=== PATIENT | female | born 1970 | race Caucasian/White ===

== ENCOUNTER 2020-07-28 13:52 | Day surgery (SDC) | payer BC ==
[2020-07-28] MEDS ORDERED: BUPIVACAINE 0.5% VIAL IJ ONE (13:53)
[2020-07-28] MEDS ORDERED: Depo-Medrol 40 MG/ML IM ONE (13:53)
[2020-07-28] MEDS ORDERED: Lactated Ringers 1,000 ML IV ONE (15:32)
[2020-07-28] MEDS ORDERED: Ketamine HCl 50 MG/ML ONE (16:02)
[2020-07-28] MEDS ORDERED: DIPRIVAN 200 MG/20 ML IV ONE (16:02)
[2020-07-28] MEDS ORDERED: SUBLIMAZE 100 MCG/2 ML ONE (16:02)
--- NOTE | 2020-07-28 21:52 | XRAY ---
Indication: Left knee injection. Intraoperative fluoroscopy was provided for 3 seconds. Single digital spot image submitted for interpretation demonstrates needle tip projecting over the left femur intercondylar notch. Small amount of contrast injected for needle tip placement. Correlate with intraoperative findings/report.
--- NOTE | 2020-07-28 21:52 | XRAY ---
Indication: Right knee injection. Intraoperative fluoroscopy was provided for 6 seconds. Single digital spot image submitted for interpretation demonstrates needle tip projecting over the right femur intercondylar notch. Small amount of contrast injected for needle tip placement. Correlate with intraoperative findings/report.
--- NOTE | 2020-07-28 21:56 | XRAY ---
6 seconds fluoroscopy time in surgery for right knee intra-articular injection.
--- NOTE | 2020-07-28 22:06 | XRAY ---
3 seconds fluoroscopy time in surgery for left knee intra-articular injection.
== END 2020-07-28 16:18 | disposition home or self-care (01) ==
LOC: SDC-PAIN 13:52
PROVIDERS: ATTEND Psychiatry & Neurology Pain Medicine
DX: M17.0 Bilateral primary osteoarthritis of knee (principal); E11.9 Type 2 diabetes mellitus without complications; G47.30 Sleep apnea, unspecified; F41.8 Other specified anxiety disorders; Z79.899 Other long term (current) drug therapy
CPT/HCPCS: 20610; 73560; 77002; 82962; J1030; J2704; J3010; Q9966

== ENCOUNTER 2020-12-22 07:48 | Day surgery (SDC) | payer BC ==
[2020-12-22] MEDS ORDERED: LIDOCAINE HCL 2% 100 MG/5 ML IJ ONE (07:49)
[2020-12-22] MEDS ORDERED: DIPRIVAN 200 MG/20 ML IV ONE (09:55)
[2020-12-22] MEDS ORDERED: Ketamine HCl 50 MG/ML ONE (09:55)
--- NOTE | 2020-12-22 11:33 | XRAY ---
15 seconds of fluoroscopy was used in surgery for a bilateral L4-L5 and L5-S1 MBB.
--- NOTE | 2020-12-22 11:34 | XRAY ---
Indication: Bilateral L4-S1 MBB. Intraoperative fluoroscopy was provided for 15 seconds. Single digital spot image submitted for interpretation demonstrates posterior needle tips projecting over the expected left and right L4-S1 nerve roots. Correlate with intraoperative findings/report.
[2020-12-22] MEDS ORDERED: Lactated Ringers 1,000 ML IV ONE (15:53)
== END 2020-12-22 10:20 | disposition home or self-care (01) ==
LOC: SDC-PAIN 07:48
PROVIDERS: ATTEND Psychiatry & Neurology Pain Medicine
DX: M47.816 Spondylosis without myelopathy or radiculopathy, lumbar region (principal); E11.9 Type 2 diabetes mellitus without complications; G47.30 Sleep apnea, unspecified; J45.909 Unspecified asthma, uncomplicated; F41.8 Other specified anxiety disorders; Z79.899 Other long term (current) drug therapy
CPT/HCPCS: 64493; 64494; 72020; 77002; 82947; J2704

== ENCOUNTER 2021-05-11 08:52 | Day surgery (SDC) | payer BC ==
[2021-05-11] MEDS ORDERED: BUPIVACAINE 0.5% VIAL IJ ONE (08:53)
[2021-05-11] MEDS ORDERED: Depo-Medrol 40 MG/ML IM ONE (08:53)
[2021-05-11] MEDS ORDERED: DIPRIVAN 200 MG/20 ML IV ONE (10:32)
--- NOTE | 2021-05-11 14:53 | XRAY ---
Indication: Left SI joint injection. Intraoperative fluoroscopy provided for 18 seconds. 2 digital spot image submitted for interpretation demonstrates posterior needle tip projecting over the inferior left SI joint. Correlate with intraoperative findings/report.
--- NOTE | 2021-05-11 15:06 | XRAY ---
18 seconds of fluoroscopy was used in surgery for a left SI joint injection.
[2021-05-11] MEDS ORDERED: Lactated Ringers 1,000 ML IV ONE (16:01)
== END 2021-05-11 11:00 | disposition home or self-care (01) ==
LOC: SDC-PAIN 08:52
PROVIDERS: ATTEND Psychiatry & Neurology Pain Medicine
DX: M46.1 Sacroiliitis, not elsewhere classified (principal); F41.9 Anxiety disorder, unspecified; F32.9 Major depressive disorder, single episode, unspecified; M19.90 Unspecified osteoarthritis, unspecified site; E11.9 Type 2 diabetes mellitus without complications; G47.30 Sleep apnea, unspecified; J45.909 Unspecified asthma, uncomplicated; Z79.899 Other long term (current) drug therapy
CPT/HCPCS: 27096; 72020; 77002; 82947; J1030; J2704; G0260

== ENCOUNTER 2021-07-20 10:03 | Day surgery (SDC) | payer BC ==
[2021-07-20] MEDS ORDERED: Xylocaine 1% Vial 30 ML PF IJ ONE (10:04)
[2021-07-20] MEDS ORDERED: Depo-Medrol 40 MG/ML IM ONE (10:04)
[2021-07-20] MEDS ORDERED: BUPIVACAINE 0.5% VIAL IJ ONE (10:04)
[2021-07-20] MEDS ORDERED: DIPRIVAN 200 MG/20 ML IV ONE (10:58)
[2021-07-20] MEDS ORDERED: Ketamine HCl 50 MG/ML ONE (10:59)
--- NOTE | 2021-07-20 11:40 | XRAY ---
Indication: Right shoulder injection. Intraoperative fluoroscopy provided for 28 seconds. Single digital spot image submitted for interpretation demonstrates needle tip projecting over left glenohumeral joint superiorly. Small amount of contrast injected for needle tip placement. Correlate with intraoperative findings/report.
--- NOTE | 2021-07-20 11:42 | XRAY ---
30 seconds fluoroscopy time in surgery for intra-articular injection of the left hip.
--- NOTE | 2021-07-20 11:52 | XRAY ---
28 seconds fluoroscopy time in surgery for intra-articular injection of the right shoulder.
[2021-07-20] MEDS ORDERED: Lactated Ringers 1,000 ML IV ONE (14:04)
--- NOTE | 2021-07-21 10:13 | XRAY ---
30 seconds fluoroscopy time in surgery for intra-articular injection of the left hip.
== END 2021-07-20 11:37 | disposition home or self-care (01) ==
LOC: SDC-PAIN 10:03
PROVIDERS: ATTEND Psychiatry & Neurology Pain Medicine
DX: M16.12 Unilateral primary osteoarthritis, left hip (principal); M19.011 Primary osteoarthritis, right shoulder; E11.9 Type 2 diabetes mellitus without complications; Z79.899 Other long term (current) drug therapy
CPT/HCPCS: 20610; 73030; 73501; 77002; 82947; J1030; J2001; J2704; Q9966

== ENCOUNTER 2021-11-10 07:08 | Day surgery (SDC) | payer BC ==
[2021-11-10] MEDS ORDERED: BUPIVACAINE 0.5% VIAL IJ ONE (07:09)
[2021-11-10] MEDS ORDERED: Depo-Medrol 40 MG/ML IM ONE (07:09)
[2021-11-10] MEDS ORDERED: Lactated Ringers 1,000 ML IV ONE (08:26)
--- NOTE | 2021-11-10 09:37 | XRAY ---
Indication: Right shoulder and subacromial injections. Intraoperative fluoroscopy provided for 22 seconds. 2 digital spot image submitted for interpretation demonstrates needle tip projecting over the right glenohumeral joint superiorly. Second needle tip is subacromial. Small amount of contrast injected for both needle tip placement. Correlate with intraoperative findings/report.
--- NOTE | 2021-11-10 10:40 | XRAY ---
22 seconds fluoroscopy time in surgery for intra-articular and subachromial injections of the right shoulder.
== END 2021-11-10 09:16 | disposition home or self-care (01) ==
LOC: SDC-PAIN 07:08
PROVIDERS: ATTEND Psychiatry & Neurology Pain Medicine
DX: M19.011 Primary osteoarthritis, right shoulder (principal); M75.51 Bursitis of right shoulder; E11.9 Type 2 diabetes mellitus without complications; Z79.899 Other long term (current) drug therapy
CPT/HCPCS: 20610; 73030; 77002; 82947; J1030; Q9966

== ENCOUNTER 2022-03-08 07:56 | Day surgery (SDC) | payer BC, MEDICAID ==
[2022-03-08] MEDS ORDERED: Depo-Medrol 40 MG/ML IM ONE (07:57)
[2022-03-08] MEDS ORDERED: BUPIVACAINE 0.5% VIAL IJ ONE (07:57)
[2022-03-08] MEDS ORDERED: DIPRIVAN 200 MG/20 ML IV ONE (10:08)
[2022-03-08] MEDS ORDERED: Lactated Ringers 1,000 ML IV ONE (10:14)
--- NOTE | 2022-03-08 11:57 | XRAY ---
Indication: Left knee injection Intraoperative fluoroscopy provided for 5 seconds. Single digital spot image submitted for interpretation demonstrates needle tip projecting over the left femur intercondylar notch. Small amount of contrast injected for needle tip placement. Correlate with intraoperative findings/report.
--- NOTE | 2022-03-08 11:57 | XRAY ---
Indication: Right knee injection Intraoperative fluoroscopy provided for 13 seconds. Single digital spot image submitted for interpretation demonstrates needle tip projecting over the right femur intercondylar notch. Small amount of contrast injected for needle tip placement. Correlate with intraoperative findings/report.
--- NOTE | 2022-03-08 12:11 | XRAY ---
5 seconds fluoroscopy time in surgery for intra-articular injection of the left knee.
--- NOTE | 2022-03-08 12:11 | XRAY ---
13 seconds fluoroscopy time in surgery for intra-articular injection of the right knee.
== END 2022-03-08 10:35 | disposition home or self-care (01) ==
LOC: SDC-PAIN 07:56
PROVIDERS: ATTEND Psychiatry & Neurology Pain Medicine
DX: M17.0 Bilateral primary osteoarthritis of knee (principal); E11.9 Type 2 diabetes mellitus without complications; Z79.899 Other long term (current) drug therapy
CPT/HCPCS: 20610; 73560; 77002; 82947; J1030; J2704; Q9966

== ENCOUNTER 2022-03-29 07:46 | Day surgery (SDC) | payer BC, OTHER ==
[2022-03-29] MEDS ORDERED: BUPIVACAINE 0.5% VIAL IJ ONE (07:47)
[2022-03-29] MEDS ORDERED: Depo-Medrol 40 MG/ML IM ONE (07:47)
[2022-03-29] MEDS ORDERED: Lactated Ringers 1,000 ML IV ONE (09:16)
[2022-03-29] MEDS ORDERED: DIPRIVAN 200 MG/20 ML IV ONE (09:30)
[2022-03-29] MEDS ORDERED: Xylocaine-Mpf 2% 5 Ml Vial ONE (09:31)
--- NOTE | 2022-03-29 11:02 | XRAY ---
Indication: Right shoulder and subacromial bursal injections. Intraoperative fluoroscopy provided for 23 seconds. 2 digital spot images submitted for interpretation demonstrates needle tip projecting over the right glenohumeral joint superiorly. Second needle tip subacromial. Small amount of contrast injected for both needle tip placement. Correlate with intraoperative findings/report.
--- NOTE | 2022-03-29 12:48 | XRAY ---
23 seconds of fluoroscopy was used in surgery for a right shoulder intra-articular and subacromial bursa injections.
== END 2022-03-29 09:57 | disposition home or self-care (01) ==
LOC: SDC-PAIN 07:46
PROVIDERS: ATTEND Psychiatry & Neurology Pain Medicine
DX: M19.011 Primary osteoarthritis, right shoulder (principal); E11.9 Type 2 diabetes mellitus without complications; Z79.899 Other long term (current) drug therapy
CPT/HCPCS: 20610; 73030; 77002; 82947; J1030; J2704; Q9966

== ENCOUNTER 2022-07-26 07:09 | Day surgery (SDC) | payer BC, OTHER ==
[2022-07-26] MEDS ORDERED: Depo-Medrol 40 MG/ML IM ONE (07:10)
[2022-07-26] MEDS ORDERED: Sodium Chloride 0.9(Preservative Free) 10 ML IJ ONE (07:10)
[2022-07-26] MEDS ORDERED: DIPRIVAN 200 MG/20 ML IV ONE (08:27)
--- NOTE | 2022-07-26 09:59 | XRAY ---
Indication: Left L4-S1 transforaminal ISAURA. Intraoperative fluoroscopy provided for 20 seconds. 4 digital spot images submitted for interpretation demonstrates posterior needle tips projecting over the expected left L4 and L5 nerve roots. Small amount of contrast injected for needle tip placement. Correlate with intraoperative findings/report.
--- NOTE | 2022-07-26 10:31 | XRAY ---
28 seconds of fluoroscopy was used in surgery for a left L4-S1 transforaminal ISAURA.
[2022-07-26] MEDS ORDERED: Lactated Ringers 1,000 ML IV ONE (10:57)
== END 2022-07-26 08:46 | disposition home or self-care (01) ==
LOC: SDC-PAIN 07:09
PROVIDERS: ATTEND Psychiatry & Neurology Pain Medicine
DX: M54.16 Radiculopathy, lumbar region (principal); E11.9 Type 2 diabetes mellitus without complications; Z79.899 Other long term (current) drug therapy
CPT/HCPCS: 64483; 64484; 72100; 77003; 82947; J1030; J2704; Q9966

== ENCOUNTER 2022-09-06 08:02 | Day surgery (SDC) | payer BC, OTHER ==
[2022-09-06] MEDS ORDERED: Depo-Medrol 40 MG/ML IM ONE (08:03)
[2022-09-06] MEDS ORDERED: BUPIVACAINE 0.5% VIAL IJ ONE (08:03)
[2022-09-06] MEDS ORDERED: Lactated Ringers 1,000 ML IV ONE (08:58)
--- NOTE | 2022-09-06 10:01 | XRAY ---
Indication: Right SI joint injection. Intraoperative fluoroscopy was provided for 9 seconds. 2 digital spot images submitted for interpretation demonstrates posterior needle tip projecting over the right SI joint. Correlate with intraoperative findings/report.
--- NOTE | 2022-09-06 10:03 | XRAY ---
9 second of fluoroscopy was used in surgery for a right sacroiliac joint injection.
[2022-09-06] MEDS ORDERED: DIPRIVAN 200 MG/20 ML IV ONE (10:04)
== END 2022-09-06 09:45 | disposition home or self-care (01) ==
LOC: SDC-PAIN 08:02
PROVIDERS: ATTEND Psychiatry & Neurology Pain Medicine
DX: M46.1 Sacroiliitis, not elsewhere classified (principal); E11.9 Type 2 diabetes mellitus without complications; Z79.899 Other long term (current) drug therapy
CPT/HCPCS: 27096; 72170; 77002; 82947; J1030; J2704; G0260

== ENCOUNTER 2022-11-01 07:54 | Day surgery (SDC) | payer BC, OTHER ==
[2022-11-01] MEDS ORDERED: BUPIVACAINE 0.5% VIAL IJ ONE (07:55)
[2022-11-01] MEDS ORDERED: Depo-Medrol 40 MG/ML IM ONE (07:55)
[2022-11-01] MEDS ORDERED: DIPRIVAN 200 MG/20 ML IV ONE (08:56)
[2022-11-01] MEDS ORDERED: Lactated Ringers 1,000 ML IV ONE (10:50)
--- NOTE | 2022-11-01 10:52 | XRAY ---
Indication: Left hip and greater trochanter bursa injection. Intraoperative fluoroscopy provided for 43 seconds. 2 digital spot image submitted for interpretation demonstrates needle tip projecting lateral to the left femur neck and lateral to the greater trochanter. Small amount of contrast injected for both needle tip placement. Correlate with intraoperative findings/report.
--- NOTE | 2022-11-01 10:58 | XRAY ---
43 seconds of fluoroscopy was used in surgery for a left intra-articular hip and greater trochanteric bursa injection.
== END 2022-11-01 09:22 | disposition home or self-care (01) ==
LOC: SDC-PAIN 07:54
PROVIDERS: ATTEND Psychiatry & Neurology Pain Medicine
DX: M75.52 Bursitis of left shoulder (principal); M16.12 Unilateral primary osteoarthritis, left hip; E11.9 Type 2 diabetes mellitus without complications; Z79.899 Other long term (current) drug therapy
CPT/HCPCS: 20610; 73502; 77002; 82947; J1030; J2704; Q9966

== ENCOUNTER 2023-03-14 08:53 | Day surgery (SDC) | payer BC, OTHER ==
[2023-03-14] MEDS ORDERED: Depo-Medrol 40 MG/ML IM ONE (08:54)
[2023-03-14] MEDS ORDERED: BUPIVACAINE 0.5% VIAL IJ ONE (08:54)
[2023-03-14] MEDS ORDERED: DIPRIVAN 200 MG/20 ML IV ONE (10:08)
[2023-03-14] MEDS ORDERED: Versed 2 MG/2 ML Injection ONE (10:09)
[2023-03-14] MEDS ORDERED: PHENYLEPHRINE HCL ONE (10:13)
--- NOTE | 2023-03-14 11:27 | XRAY ---
Indication: Left knee injection. Intraoperative fluoroscopy provided 8 seconds. Single digital spot image submitted for interpretation demonstrates needle tip projection over the left femur intercondylar notch. Small amount of contrast injected for needle tip placement. Correlate with intraoperative findings/report.
--- NOTE | 2023-03-14 11:27 | XRAY ---
Indication: Right knee injection. Intraoperative fluoroscopy provided 8 seconds. Single digital spot image submitted for interpretation demonstrates needle tip projection over the right femur intercondylar notch. Small amount of contrast injected for needle tip placement. Correlate with intraoperative findings/report.
--- NOTE | 2023-03-14 11:41 | XRAY ---
8 seconds of fluoroscopy was used in surgery for a right intra-articular knee injection.
--- NOTE | 2023-03-14 11:41 | XRAY ---
8 seconds of fluoroscopy was used in surgery for a left intra-articular knee injection.
[2023-03-14] MEDS ORDERED: Lactated Ringers 1,000 ML IV ONE (12:42)
== END 2023-03-14 10:40 | disposition home or self-care (01) ==
LOC: SDC-PAIN 08:53
PROVIDERS: ATTEND Psychiatry & Neurology Pain Medicine
DX: M17.0 Bilateral primary osteoarthritis of knee (principal); E11.9 Type 2 diabetes mellitus without complications; Z79.899 Other long term (current) drug therapy
CPT/HCPCS: 20610; 73560; 77002; 82947; J1030; J2250; J2370; J2704; Q9966

== ENCOUNTER 2023-05-16 07:04 | Day surgery (SDC) | payer BC, OTHER ==
[2023-05-16] MEDS ORDERED: BUPIVACAINE 0.5% VIAL IJ ONE (07:05)
[2023-05-16] MEDS ORDERED: Depo-Medrol 40 MG/ML IM ONE (07:05)
[2023-05-16] MEDS ORDERED: DIPRIVAN 200 MG/20 ML IV ONE ×2 (08:39→08:48)
--- NOTE | 2023-05-16 10:19 | XRAY ---
Indication: Bilateral hip injection. Intraoperative fluoroscopy provided for 1 minute 37 seconds. 2 digital spot image submitted for interpretation demonstrates needle tip projecting lateral to the left and right femur necks. Small amount of contrast injected for needle tip placement. Correlate with intraoperative findings/report.
--- NOTE | 2023-05-16 10:43 | XRAY ---
One minute and 37 seconds of fluoroscopy was used in surgery for a bilateral intra-articular hip injection.
[2023-05-16] MEDS ORDERED: Lactated Ringers 1,000 ML IV ONE (11:01)
== END 2023-05-16 09:14 | disposition home or self-care (01) ==
LOC: SDC-PAIN 07:04
PROVIDERS: ATTEND Psychiatry & Neurology Pain Medicine
DX: M16.0 Bilateral primary osteoarthritis of hip (principal); E11.9 Type 2 diabetes mellitus without complications; Z79.899 Other long term (current) drug therapy
CPT/HCPCS: 20610; 73521; 77002; 82947; J1030; J2704; Q9966

== ENCOUNTER 2023-07-04 07:26 | Day surgery (SDC) | payer BC, OTHER ==
[2023-07-04] MEDS ORDERED: Depo-Medrol 40 MG/ML IM ONE (07:27)
[2023-07-04] MEDS ORDERED: BUPIVACAINE 0.5% VIAL IJ ONE (07:27)
[2023-07-04] MEDS ORDERED: DIPRIVAN 200 MG/20 ML IV ONE (08:52)
--- NOTE | 2023-07-04 10:19 | XRAY ---
Indication: Left SI joint injection. Intraoperative fluoroscopy provided for 9 seconds. 2 digital spot images submitted for interpretation demonstrates posterior needle tip projecting over the left SI joint. Correlate with intraoperative findings/report.
[2023-07-04] MEDS ORDERED: Lactated Ringers 1,000 ML IV ONE (13:07)
--- NOTE | 2023-07-04 13:30 | XRAY ---
9 seconds of fluoroscopy was used in surgery for a left sacroiliac joint injection.
== END 2023-07-04 09:20 | disposition home or self-care (01) ==
LOC: SDC-PAIN 07:26
PROVIDERS: ATTEND Psychiatry & Neurology Pain Medicine
DX: M46.1 Sacroiliitis, not elsewhere classified (principal); E11.9 Type 2 diabetes mellitus without complications; Z79.899 Other long term (current) drug therapy
CPT/HCPCS: 27096; 72170; 77002; 82947; J1030; J2704; G0260

== ENCOUNTER 2023-09-19 06:59 | Day surgery (SDC) | payer BC, OTHER ==
[2023-09-19] MEDS ORDERED: BUPIVACAINE 0.5% VIAL IJ ONE (07:00)
[2023-09-19] MEDS ORDERED: Depo-Medrol 40 MG/ML IM ONE (07:00)
[2023-09-19] MEDS ORDERED: DIPRIVAN 200 MG/20 ML IV ONE (08:28)
[2023-09-19] MEDS ORDERED: Lactated Ringers 1,000 ML IV ONE (09:46)
--- NOTE | 2023-09-19 10:29 | XRAY ---
Indication: Left hip and greater trochanter bursa injection. Intraoperative fluoroscopy provided for 31 seconds. 2 digital spot images submitted for interpretation demonstrates needle tip projecting lateral to left femur neck. Second needle tip lateral to greater trochanter. Small amount of contrast injected for both needle tip placement. Correlate with intraoperative findings/report.
--- NOTE | 2023-09-19 11:44 | XRAY ---
31 seconds of fluoroscopy was used in surgery for a left hip intra-articular and greater trochanteric bursa injection.
== END 2023-09-19 08:54 | disposition home or self-care (01) ==
LOC: SDC-PAIN 06:59
PROVIDERS: ATTEND Psychiatry & Neurology Pain Medicine
DX: M16.12 Unilateral primary osteoarthritis, left hip (principal); E11.9 Type 2 diabetes mellitus without complications
CPT/HCPCS: 20610; 73502; 77002; 82947; J1030; J2704; Q9966

== ENCOUNTER 2023-12-19 06:49 | Day surgery (SDC) | payer BC, OTHER ==
[2023-12-19] MEDS ORDERED: BUPIVACAINE 0.5% VIAL IJ ONE (06:50)
[2023-12-19] MEDS ORDERED: Depo-Medrol 40 MG/ML IM ONE (06:50)
[2023-12-19] MEDS ORDERED: DIPRIVAN 200 MG/20 ML IV ONE (08:35)
[2023-12-19] MEDS ORDERED: Lactated Ringers 1,000 ML IV ONE (09:19)
--- NOTE | 2023-12-19 09:53 | XRAY ---
Indication: Left knee injection. Intraoperative fluoroscopy provided for 4 seconds. Single digital spot image submitted for interpretation demonstrates needle tip projecting over the left femur intercondylar notch. Small amount of contrast injected for needle tip placement. Correlate with intraoperative findings/report.
--- NOTE | 2023-12-19 09:53 | XRAY ---
Indication: Right knee injection. Intraoperative fluoroscopy provided for 6 seconds. Single digital spot image submitted for interpretation demonstrates needle tip projecting over the right femur intercondylar notch. Small amount of contrast injected for needle tip placement. Correlate with intraoperative findings/report.
--- NOTE | 2023-12-19 10:04 | XRAY ---
4 seconds of fluoroscopy was used in surgery for a left intra-articular knee injection.
--- NOTE | 2023-12-19 10:04 | XRAY ---
6 seconds of fluoroscopy was used in surgery for a right intra-articular knee injection.
== END 2023-12-19 09:07 | disposition home or self-care (01) ==
LOC: SDC-PAIN 06:49
PROVIDERS: ATTEND Psychiatry & Neurology Pain Medicine
DX: M17.0 Bilateral primary osteoarthritis of knee (principal); E11.9 Type 2 diabetes mellitus without complications; Z79.899 Other long term (current) drug therapy
CPT/HCPCS: 20610; 73560; 77002; 82947; J1030; J2704; Q9966

== ENCOUNTER 2024-03-26 07:55 | Day surgery (SDC) | payer BC, OTHER ==
[2024-03-26] MEDS ORDERED: Depo-Medrol 40 MG/ML IM ONE (07:56)
[2024-03-26] MEDS ORDERED: BUPIVACAINE 0.5% VIAL IJ ONE (07:56)
[2024-03-26] MEDS ORDERED: DIPRIVAN 200 MG/20 ML IV ONE (09:45)
--- NOTE | 2024-03-26 10:45 | XRAY ---
Indication: Left hip and greater trochanter bursa injection. Intraoperative fluoroscopy provided for 22 seconds. 2 digital spot image submitted for interpretation demonstrates needle tips projecting lateral to left femur neck and left greater trochanter. Small amount of contrast injected for both needle tip placement. Correlate with intraoperative findings/report.
[2024-03-26] MEDS ORDERED: Lactated Ringers 1,000 ML IV ONE (11:27)
--- NOTE | 2024-03-27 13:53 | XRAY ---
22 seconds of fluoroscopy was used in surgery for a left intra-articular hip and greater trochanteric bursa injection.
== END 2024-03-26 10:20 | disposition home or self-care (01) ==
LOC: SDC-PAIN 07:55
PROVIDERS: ATTEND Psychiatry & Neurology Pain Medicine
DX: M16.12 Unilateral primary osteoarthritis, left hip (principal); E11.9 Type 2 diabetes mellitus without complications
CPT/HCPCS: 20610; 73502; 77002; 82947; J1010; J2704; Q9966

== ENCOUNTER 2024-05-14 09:09 | Day surgery (SDC) | payer BC, OTHER ==
[2024-05-14] MEDS ORDERED: Depo-Medrol 40 MG/ML IM ONE (09:10)
[2024-05-14] MEDS ORDERED: BUPIVACAINE 0.5% VIAL IJ ONE (09:10)
[2024-05-14] MEDS ORDERED: DIPRIVAN 200 MG/20 ML IV ONE (11:14)
--- NOTE | 2024-05-14 11:56 | XRAY ---
Indication: Bilateral SI joint injection. Intraoperative fluoroscopy provided for 36 seconds. 2 digital spot image submitted for interpretation demonstrates posterior needle tips projecting over the expected left and right SI joints. Small amount of contrast injected for needle tip placement. Correlate with intraoperative findings/report.
[2024-05-14] MEDS ORDERED: Lactated Ringers 1,000 ML IV ONE (12:14)
--- NOTE | 2024-05-14 12:54 | XRAY ---
36 seconds of fluoroscopy was used in surgery for a bilateral sacroiliac joint injection.
== END 2024-05-14 11:45 | disposition home or self-care (01) ==
LOC: SDC-PAIN 09:09
PROVIDERS: ATTEND Psychiatry & Neurology Pain Medicine
DX: M46.1 Sacroiliitis, not elsewhere classified (principal); E11.9 Type 2 diabetes mellitus without complications
CPT/HCPCS: 27096; 72202; 77002; 82947; J1010; J2704; Q9966; G0260

== ENCOUNTER 2024-08-13 09:19 | Day surgery (SDC) | payer BC, OTHER ==
[2024-08-13] MEDS ORDERED: Sodium Chloride 0.9(Preservative Free) 10 ML IJ ONE (09:20)
[2024-08-13] MEDS ORDERED: Depo-Medrol 40 MG/ML IM ONE (09:20)
[2024-08-13] MEDS ORDERED: DIPRIVAN 200 MG/20 ML IV ONE (10:26)
[2024-08-13] MEDS ORDERED: Xylocaine-Mpf 2% 5 Ml Vial ONE (10:28)
[2024-08-13] MEDS ORDERED: Lactated Ringers 1,000 ML IV ONE (13:46)
--- NOTE | 2024-08-13 20:08 | XRAY ---
Indication: Caudal ISAURA Intraoperative fluoroscopy provided for 18 seconds. 2 digital spot image submitted for interpretation demonstrates caudal needle tip projecting mid sacrum. Small amount of contrast injected for needle tip placement. Correlate with intraoperative findings/report.
--- NOTE | 2024-08-13 20:20 | XRAY ---
18 seconds of fluoroscopy was used in surgery for a caudal ISAURA.
== END 2024-08-13 10:50 ==
LOC: SDC-PAIN 09:19
PROVIDERS: ATTEND Psychiatry & Neurology Pain Medicine
DX: M54.16 Radiculopathy, lumbar region (principal); E11.9 Type 2 diabetes mellitus without complications
CPT/HCPCS: 62323; 72220; 77003; 82947; J2704; Q9966

== ENCOUNTER 2024-09-24 07:34 | Day surgery (SDC) | payer BC, OTHER ==
[2024-09-24] MEDS ORDERED: BUPIVACAINE 0.5% VIAL IJ ONE (07:35)
[2024-09-24] MEDS ORDERED: LIDOCAINE HCL 1% AMPUL 5 ML IJ ONE (07:35)
[2024-09-24] MEDS ORDERED: Depo-Medrol 40 MG/ML IM ONE (07:35)
[2024-09-24] MEDS ORDERED: DIPRIVAN 200 MG/20 ML IV ONE (08:59)
--- NOTE | 2024-09-24 10:13 | XRAY ---
Indication: Left hip and greater trochanter bursa injection. Intraoperative fluoroscopy provided for 26 seconds. 2 digital spot images submitted for interpretation demonstrates needle tips projecting lateral to left femur neck and greater trochanter. Small amount of contrast injected for both needle tip placement. Correlate with intraoperative findings/report.
--- NOTE | 2024-09-24 12:10 | XRAY ---
26 seconds of fluoroscopy was used in surgery for a left intra-articular hip and greater trochanteric bursa injection.
== END 2024-09-24 09:30 | disposition home or self-care (01) ==
LOC: SDC-PAIN 07:34
PROVIDERS: ATTEND Psychiatry & Neurology Pain Medicine
DX: M16.12 Unilateral primary osteoarthritis, left hip (principal); E11.9 Type 2 diabetes mellitus without complications
CPT/HCPCS: 20610; 73502; 77002; 82947; J2704; Q9966

== ENCOUNTER 2024-11-12 07:29 | Day surgery (SDC) | payer BC, OTHER ==
[2024-11-12] MEDS ORDERED: Depo-Medrol 40 MG/ML IM ONE (07:30)
[2024-11-12] MEDS ORDERED: BUPIVACAINE 0.5% VIAL IJ ONE (07:30)
[2024-11-12] MEDS ORDERED: DIPRIVAN 200 MG/20 ML IV ONE (08:37)
--- NOTE | 2024-11-12 10:11 | XRAY ---
Indication: Right hip and greater trochanter bursa injection.. Intraoperative fluoroscopy provided for 22 seconds. 2 digital spot image submitted for interpretation demonstrates needle tip projecting lateral to right femur neck. Second needle tip lateral to right greater trochanter. Small amount of contrast injected for both needle tip placement. Correlate with intraoperative findings/report.
--- NOTE | 2024-11-12 11:01 | XRAY ---
22 seconds of fluoroscopy was used in surgery for a right intra-articular hip and greater trochanteric bursa injection.
== END 2024-11-12 09:40 | disposition home or self-care (01) ==
LOC: SDC-PAIN 07:29
PROVIDERS: ATTEND Psychiatry & Neurology Pain Medicine
DX: M16.11 Unilateral primary osteoarthritis, right hip (principal); M70.61 Trochanteric bursitis, right hip; E11.9 Type 2 diabetes mellitus without complications
CPT/HCPCS: 73502; 77002; 82947; J2704